=== PATIENT | female | born 1985 | race Caucasian/White ===

== ENCOUNTER 2022-07-16 08:42 | Day surgery (SDC) | payer OTHER | END 2022-07-16 09:30 | disposition home or self-care (01) | LOC: CSHSDC/OP 08:42 | PROVIDERS: ATTEND Obstetrics & Gynecology | DX: O36.0190 Maternal care for anti-D [Rh] antibodies, unspecified trimester, not applicable or unspecified (principal); Z67.21 Type B blood, Rh negative ==

== ENCOUNTER 2023-10-04 11:48 | Day surgery (SDC) | payer OTHER ==
[2023-10-04] MEDS ORDERED: Iron Sucrose Complex 500 MG in Sodium Chloride 0.9% 250 ML 250 ML IVPB SCH (12:15)
[2023-10-04] MEDS ORDERED: Acetaminophen 500 MG TAB ONE (12:15)
[2023-10-04] MEDS ORDERED: Acetaminophen 500 MG TAB PO SCH (12:15)
== END 2023-10-04 16:25 | disposition home or self-care (01) ==
LOC: CSHSDC 11:48
PROVIDERS: ATTEND Obstetrics & Gynecology
DX: O99.840 Bariatric surgery status complicating pregnancy, unspecified trimester (principal); O99.210 Obesity complicating pregnancy, unspecified trimester; Z3A.00 Weeks of gestation of pregnancy not specified
CPT/HCPCS: 96365; 96366; J1756; J7050

== ENCOUNTER 2023-11-11 09:41 | Inpatient (IN) | payer OTHER ==
[2023-11-09 11:16] LABS: #Basophils 0.06 10x3/uL (0.0-0.2); #Eosinphils 0.66 10x3/uL (0.0-0.5); #Monocytes 0.56 10x3/uL (0.0-1.1); #Neutrophils 7.27 10x3/uL (1.5-8.4); %Basophils 0.6 % (0.0-2.0); %Eosinophils 6.5 % (0.0-6.0); %Lymphocytes 15.7 % (18.0-47.0); %Monocytes 5.5 % (0.0-10.0); %Neutrophils 71.1 % (40.0-75.0); Mean Corpuscular Hemoglobin 20.4 pg (27.0-33.0); Mean Corpuscular Volume 67.9 fL (81.6-98.3); Mean Platelet Volume 10.6 fL (7.4-10.4); Platelet Count 307 10x3/uL (150-450); RBC Distribution Width 23.3 % (11.5-14.5); Red Blood Cell (RBC) Count 4.42 10x6/uL (3.90-5.03); White Blood Cell (WBC) Count 10.2 10x3/uL (3.5-10.5)
[2023-11-09 11:41] LABS: HBsAg Index 0.22 S/CO (0-0.99); Hep B Surf Ag Non-Reactive S/CO (NonReactive); Syphilis Antibody Nonreactive (Nonreactive); Syphilis Antibody Index 0.05 S/CO (<1.00 Non-Reactive)
[2023-11-09 11:42] LABS: Anisocytosis SLIGHT = 6-15 cells (100X) (0-5/hpf); Hypochromia SLIGHT = 6-15 cells (100X) (0-5/hpf); Large Platelets SLIGHT (None Seen); Microcytosis MODERATE=15-30 cells (100X) (0-5/hpf); Ovalocytes SLIGHT = 2-5 cells (100X) (0-1/hpf); Platelet Adequacy Comment Appears Adequate; Polychromasia SLIGHT = 2-3 cells (100X) (0-2/hpf)
[2023-11-11] MEDS ORDERED: Diphenoxylate HCl/Atropine Tablet PO PRN ×2 (10:44)
[2023-11-11] MEDS ORDERED: Promethazine HCl 25 MG/ML VIAL IM PRN ×2 (10:44→14:07)
[2023-11-11] MEDS ORDERED: Oxytocin 30 units/NS 500 ML 500 ML IV SCH (10:44)
[2023-11-11] MEDS ORDERED: Methylergonovine 0.2 MG/ML VIAL IM PRN (10:44)
[2023-11-11] MEDS ORDERED: Misoprostol 200 MCG TAB PR PRN (10:44)
[2023-11-11] MEDS ORDERED: Bicitra 30 ML UDCUP PO PRN (10:44)
[2023-11-11] MEDS ORDERED: Ondansetron PF 4 MG/2 ML Vial IVP PRN ×3 (10:44→14:07)
[2023-11-11] MEDS ORDERED: hydrALAZINE 20 MG/ML VIAL SLOW IVP PRN ×2 (10:44→19:31)
[2023-11-11] MEDS ORDERED: Carboprost 250 MCG/ML AMP IM PRN (10:44)
[2023-11-11 10:47] VITALS: BMI 34.9
[2023-11-11] MEDS: CEFAZOLIN 2 GM in Sodium Chloride 0.9% 100 ML IVPB SCH (11:45)
[2023-11-11] MEDS: Famotidine/PF 20 mg/2ml Vial SLOW IVP PRN (11:45)
[2023-11-11] MEDS: Lactated Ringer's 1,000 ML IV SCH (11:45)
[2023-11-11] MEDS ORDERED: Moisturizing Cream (Eucerin) 113 GM JAR TOP PRN (14:07)
[2023-11-11] MEDS ORDERED: Meperidine HCl/PF 25 MG (1 mL) VIAL SLOW IVP PRN (14:07)
[2023-11-11] MEDS ORDERED: Naloxone HCl 0.4 mg/ml Vial IV PRN (14:07)
[2023-11-11] MEDS ORDERED: diphenhydrAMINE 50 MG/ML VIAL IVP PRN (14:07)
[2023-11-11] MEDS ORDERED: fentaNYL 50 mcg/mL 1 mL Vial SLOW IVP PRN (14:07)
[2023-11-11] MEDS ORDERED: Naloxone HCl 0.4 mg/ml Vial IVP PRN ×2 (14:07)
[2023-11-11] MEDS ORDERED: HYDROmorphone 0.5 MG/0.5 ML SYRINGE SLOW IVP PRN (14:07)
[2023-11-11] MEDS ORDERED: Ketorolac Tromethamine 30 MG (1 mL) VIAL IVP SCH (14:15)
[2023-11-11] MEDS ORDERED: Communication Order-Pharmacy FS SCH (14:15)
[2023-11-11] MEDS: Ketorolac Tromethamine 30 MG (1 mL) VIAL IVP PRN (15:14)
[2023-11-11] MEDS ORDERED: Bisacodyl 10 MG SUPP PR PRN (19:31)
[2023-11-11] MEDS: Docusate 100 MG CAP PO SCH (21:23)
[2023-11-11] MEDS: Simethicone Chewable 80 MG TAB PO PRN (21:23)
[2023-11-11] MEDS: Ferrous Sulfate 325 MG TAB PO SCH (21:40)
[2023-11-11] MEDS: Ibuprofen 800 MG TAB PO SCH (22:00)
[2023-11-12 03:30] LABS: Hemoglobin 6.4 g/dL (12.0-15.5); Mean Corpuscular HGB CONC 30.5 g/dL (32.0-36.0); Mean Corpuscular Hemoglobin 20.9 pg (27.0-33.0); Mean Corpuscular Volume 68.6 fL (81.6-98.3); Mean Platelet Volume 10.8 fL (7.4-10.4); Platelet Count 204 10x3/uL (150-450); RBC Distribution Width 22.3 % (11.5-14.5); Red Blood Cell (RBC) Count 3.06 10x6/uL (3.90-5.03); White Blood Cell (WBC) Count 11.3 10x3/uL (3.5-10.5)
[2023-11-12] MEDS: PHENYLEPHRINE-NS 100 MCG/ML 10 ML SYRINGE ONE ×2 (07:26→07:27)
[2023-11-12] MEDS: Morphine PF 10 MG/10 ML VIAL ONE (07:26)
[2023-11-12] MEDS: Oxytocin 10 UNITS/ML VIAL ONE ×2 (07:26)
[2023-11-12] MEDS: Glycopyrrolate 0.2 MG/ML 5 ML SYRINGE ONE (07:26)
[2023-11-12] MEDS: ePHEDrine Sulfate 50 MG/10 ML VIAL ONE (07:26)
[2023-11-12] MEDS: Ondansetron PF 4 MG/2 ML Vial ONE (07:26)
[2023-11-12] MEDS: Phenylephrine 10 MG/ML VIAL ONE (07:26)
[2023-11-12] MEDS: fentaNYL 50 mcg/mL 1 mL Vial ONE ×2 (07:26→07:27)
[2023-11-12] MEDS: Promethazine HCl 25 MG/ML VIAL ONE (07:27)
[2023-11-12] MEDS: Prenatal Vitamin 1 TAB PO SCH (09:17)
[2023-11-12] MEDS: Boostrix 0.5 ML (Tdap) VIAL (>/=7 yrs of age) IM ONE (09:19)
[2023-11-12] MEDS: HYDROcodone/Acetaminophen 5/325 mg Tablet PO PRN (13:33)
[2023-11-12] MEDS ORDERED: Zolpidem Tartrate 5 MG TAB PO PRN (21:00)
[2023-11-13] MEDS: HYDROcodone/Acetaminophen 5/325 mg Tablet PO PRN (05:04)
[2023-11-13 09:12] LABS: Hematocrit 21.3 % (34.9-44.5); Hemoglobin 6.5 g/dL (12.0-15.5); Mean Corpuscular HGB CONC 30.5 g/dL (32.0-36.0); Mean Corpuscular Volume 68.9 fL (81.6-98.3); Mean Platelet Volume 10.8 fL (7.4-10.4); Platelet Count 258 10x3/uL (150-450); Red Blood Cell (RBC) Count 3.09 10x6/uL (3.90-5.03); White Blood Cell (WBC) Count 8.8 10x3/uL (3.5-10.5)
[2023-11-13 12:57] VITALS: TEMP 97.7
[2023-11-13 12:58] VITALS: BP 112/63
== END 2023-11-13 16:15 | disposition home or self-care (01) | DRG 784 ==
LOC: CSHLD 09:41 → CSHPP 17:20
PROVIDERS: ADMIT Obstetrics & Gynecology; ATTEND Obstetrics & Gynecology
PROC: 10D00Z1 Extraction of Products of Conception, Low, Open Approach (ICD-10-PCS; principal; 2023-11-11)
PROC: 0UT70ZZ Resection of Bilateral Fallopian Tubes, Open Approach (ICD-10-PCS; 2023-11-11)
DX: O34.211 Maternal care for low transverse scar from previous cesarean delivery (principal); D62 Acute posthemorrhagic anemia; Z37.0 Single live birth; J45.909 Unspecified asthma, uncomplicated; D64.9 Anemia, unspecified; O99.02 Anemia complicating childbirth; O99.52 Diseases of the respiratory system complicating childbirth; O99.62 Diseases of the digestive system complicating childbirth; K21.9 Gastro-esophageal reflux disease without esophagitis; Z3A.39 39 weeks gestation of pregnancy; Z30.2 Encounter for sterilization; Z98.84 Bariatric surgery status; Z79.899 Other long term (current) drug therapy
CPT/HCPCS: 36415; 51702; 85025; 85027; 85461; 86780; 86850; 86900; 86901; 87340; 88302; 90384; 96372; C1889; J1885; J2274; J2371; J2405; J2550; J2590; J3010; J3490; J7120; S0028